=== PATIENT | female | born 1940 | race Caucasian/White ===

== ENCOUNTER 2016-10-04 09:52 | Inpatient (IN) | payer MEDICARE, BC ==
[~2016-10-04] VITALS: Ht 157.5 cm; Wt 63.5 kg
[2016-10-04] MEDS ORDERED: CITA20TA4 PO (11:34)
[2016-10-04] MEDS ORDERED: CALTTAB PO (11:34)
[2016-10-04] MEDS ORDERED: OMEG100037 PO (11:34)
[2016-10-04] MEDS ORDERED: ROSU1TAB6 PO (11:34)
[2016-10-04] MEDS ORDERED: PRESCAP5 PO (11:34)
[2016-10-04] MEDS ORDERED: STRETAB PO (11:34)
[2016-10-04] MEDS ORDERED: AMLO5TAB2 PO (11:34)
[2016-10-04] MEDS ORDERED: BIOFTAB PO (11:34)
[2016-10-04] MEDS ORDERED: COCO1000 PO (11:34)
[2016-10-04] MEDS ORDERED: ASPI1TAB73 PO (11:34)
[2016-10-04] MEDS ORDERED: ALEV220T14 PO (11:34)
[2016-10-04] MEDS ORDERED: LEVO25TA4 PO (11:34)
--- NOTE | 2016-10-11 12:23 | MH ---
cc: HANH SIDHU MD DATE OF ADMISSION 10/17/2016 ADMITTING DIAGNOSIS Severe osteoarthritis of the right shoulder, incomplete rotator cuff tear right shoulder, pain right shoulder. HISTORY The patient is a 76-year-old white female who has had a rather lengthy history of pain involving her right shoulder extending back at least 3-1/2 years. She had noted the gradual onset of discomfort unrelated to injury or unusual activity and had tried taking Aleve for pain management. She presented to the undersigned physician in April of 2013 and at that time x-ray studies revealed hypertrophic reaction about the inferior aspect of the humeral head with preservation of the subacromial space. At that time, the patient was diagnosed as having subacromial bursitis with early degenerative joint disease for which she was advised conservative management which included receiving a local steroid injection. She was followed on an outpatient basis thereafter and over the following years continued to receive conservative management which included repeat cortisone injections. Unfortunately with the passage of time, repeated injections did not continued to afford the patient favorable response and she was later prescribed Tramadol for pain management. A subsequent MRI scan did demonstrate severe glenohumeral joint arthrosis and severe cuff tendinosis without a distinct tear being appreciated within the previous two years. The patient elected to continue with conservative management at that time being aware of obvious limitations with regards to her daily routine. 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 She returned to the office in July of this past year indicating that she was continuing to have pain about the shoulder area and again requested a repeat injection in the hope that she might be able to experience some overall improvement. Unfortunately, she was unable to appreciate only temporary relief for continued treatment in this regard and thus she was advised that repeated steroid injections to the shoulder area would not be in her best interest as far as trying to manage her ongoing symptoms. A more recent MRI scan completed this past year was significant for worsening of the glenohumeral joint osteoarthritis with moderate synovitis with rotator cuff tendinosis being identified. The patient continued to utilize Tramadol for pain management. She returned to the office in September of this year reporting that she was becoming increasingly more symptomatic with pain. That was beginning to incapacitated her with regards to all activities of daily living. She underwent a CT scan of the shoulder with contrast the results of which identified severe glenohumeral joint arthrosis with contrast extending into the subacromial and subdeltoid bursa with a small gap in the rotator cuff interval being appreciated. Findings and treatment options were reviewed with the patient at that time. Again, the pros and cons of continued with conservative management versus operative intervention involving reverse shoulder arthroplasty were outlined in detail. Emphasis was made regarding the fact that the decision to proceed with surgery would be left entirely to the patient's discretion. She readily admitted that she felt that she had progressed to that point in time where she was ready to proceed accordingly and in compliance with her wishes, she is currently being admitted in order that right reverse shoulder arthroplasty be accomplished. She is right-hand dominant. PAST MEDICAL HISTORY Hospitalizations and surgeries have included: 1. A left corneal transplant 2. colonoscopy 3. Dental extraction in the maxillary region. Her medical illnesses include: 1. Hypertension 1. Elevated cholesterol MEDICATIONS Current medications: 1. Amlodipine 5 mg daily 2. Levofloxacin 25 mg daily 3. Lovastatin 10 mg daily 4. Citalopram 20 mg daily 5. Fish oil 1000 mg daily 6. Coconut oil 1000 mg daily 7. Stress super B daily 8. PreserVision daily 9. Active mind 1000 mg daily 10. 81 mg Brigido aspirin tablet daily 11. Caltrate-D3 600 mg daily 12. BioFlex daily 13. Aleve p.r.n. ALLERGIES THE PATIENT DESCRIBES A DRUG ALLERGY TO CODEINE WHICH HAS BEEN ASSOCIATED WITH HALLUCINATIONS. SHE HAS TOLERATED TRAMADOL. REVIEW OF SYSTEMS She wears glasses. Denies headache, seizure or syncope. No sinus congestion. There is a history of epistaxis During childhood. Diminished auditory acuity for which a hearing aid is utilized on the left side. Complete upper dentures. No dysphagia. Denies cough, shortness of breath, upper respiratory infection, pneumonia or tuberculosis. No angina or heart disease. She is medically managed for hypertension. Her appetite is good. Bowel movements are regular. No hepatitis, gallbladder disease, ulcers or hemorrhoids. No urinary tract infection. No kidney stones. There is a fracture of the left ankle treated by cast immobilization. No psychiatric illness. Her remaining review of systems is unremarkable and noncontributory. FAMILY HISTORY The patient has been a for seven years, at approximately 80 years of age with heart disease. No children. Family history is positive for hypertension, diabetes, tuberculosis, heart disease and lung cancer. SOCIAL HISTORY The patient completed a college education. 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 She denies active use of tobacco for at least 35 years, but had been less than a one-pack per day user for 20 years prior to that time. Ethanol consumption on a rare basis in the form of a glass of wine. PHYSICAL EXAMINATION Height 5 feet 2 inches, weight 146 pounds. GENERAL: An alert, oriented and responsive 76-year-old white female who sits quietly upon examination table with no obvious distress. HEAD, EYES, EARS, NOSE, AND THROAT: Pupils are equally round and reactive to light. Extraocular movements full. Sclerae clear. External nares clear. External auditory canals clear. Edentulous in the maxillary distribution. Semi-edentulous in the mandibular distribution. Mucous membranes pink and moist. Pharynx clear. NECK: Supple. Active range of motion without appreciable pain. Carotid pulse bilaterally. Trachea midline. Thyroid without enlargement. LUNGS: Clear to auscultation and percussion. No CVA tenderness. No discomfort throughout the dorsal lumbar spine. HEART: Regular rhythm with grade 3/6 systolic murmur heard best at the right second intercostal space. ABDOMEN: Soft, nontender. Bowel sounds present. PELVIC: Per her primary care physician. EXTREMITIES: Right shoulder, there is mild tenderness generalized about the shoulder area without palpable deformity. Limited mobility of the shoulder joint in all ranges assessed with attempted active posturing of the hand above the head level, significant limitation with internal rotation, as well as adduction as the patient attempted to reach across her body and touch her opposite shoulder. Pain is associated with the extremes of motion. There is no associated crepitation or instability. Drop arm test is positive. Mild weakness of internal and external rotation. 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 Sensory intact. NEUROLOGIC: Cranial nerves II-XII grossly intact. IMPRESSION Severe osteoarthritis of the right shoulder, incomplete rotator cuff tear right shoulder, pain right shoulder. PLAN Right reverse shoulder arthroplasty. The nature of the planned surgical procedure, the potential complications and risks associated, the expectations of surgery and the consent form were thoroughly reviewed with the patient prior to admission to the hospital. Essie has indicated her full understanding regarding all the above and given consent to proceed with treatment as outlined. Medical evaluation and clearance for surgery will be completed by her primary care physician Dr. Julien, cardiology clearance per Dr. Rodriguez. MD GREGORIO Small/QUIANA /11:35 AM /12:08 PM
[2016-10-17] MEDS ORDERED: SODIUM CHLORID 0.9% 500 ML IV PRN (06:15)
[2016-10-17] MEDS ORDERED: LACTATED RINGER'S 1000 ML IV PRN (06:15)
[2016-10-17] MEDS ORDERED: METOPROLOL TARTRATE 25 MG TAB PO PRN (06:15)
[2016-10-17] MEDS ORDERED: POVIDONE IODINE 5% (ANTISEPSIS KIT) 4 APPLICATIONS EACH NARE PRN (06:15)
[2016-10-17] MEDS ORDERED: INSULIN HUMAN REGULAR 1,000 UNITS/10 ML VIAL SQ PRN (06:15)
[2016-10-17] MEDS ORDERED: CHLORHEXIDINE GLUCONATE 2 % 1 PACK (2 CLOTHS) TOPICAL PRN (06:15)
[2016-10-17 06:24] VITALS: BP 142/69; PULSE 59; RESP 18; TEMP 98.3; O2SAT 59
[2016-10-17] MEDS: POVIDONE IODINE 7.5% SCRUB 118 ML BOTTLE TOPICAL SCH ×2 (06:45→19:43)
[2016-10-17] MEDS ORDERED: ceFAZolin 2 GM PREMIX 50 ML IV SCH (06:45)
[2016-10-17] MEDS ORDERED: TRANEXAMIC ACID 1 GM PRIOR TO PROCEDURE IV SCH ×2 (06:45)
[2016-10-17] MEDS: TRANEXAMIC ACID 1 GM POST-OP IV SCH ×4 (06:47→10:45)
[2016-10-17] MEDS ORDERED: SODIUM CHLORIDE 0.9% 20 ML VIAL ONE (06:53)
[2016-10-17] MEDS ORDERED: ceFAZolin INJ 1,000 MG VIAL ONE (06:53)
[2016-10-17] MEDS ORDERED: MIDAZOLAM HCL 2 MG/2 ML VIAL ONE (07:14)
[2016-10-17] MEDS ORDERED: FAMOTIDINE 20 MG/2 ML VIAL ONE (07:14)
[2016-10-17] MEDS ORDERED: DEXAMETHASONE SOD PHOS 4 MG/ML VIAL ONE (07:14)
[2016-10-17] MEDS ORDERED: fentaNYL CITRATE 250 MCG/5 ML AMP ONE (10:30)
[2016-10-17] MEDS ORDERED: *morphine SULFATE 8 MG/ML PERIprocedure ONLY ONE ×2 (10:33→10:46)
[2016-10-17] MEDS ORDERED: MORPHINE SULFATE 30 MG/30 ML PCA IV SCH (10:45)
[2016-10-17] MEDS ORDERED: diphenhydrAMINE HCL 25 MG CAP PO PRN (10:45)
[2016-10-17] MEDS ORDERED: SODIUM CHLORIDE 0.9% FLUSH 5 ML FLUSH IVF PRN (10:45)
[2016-10-17] MEDS ORDERED: MISCELLANEOUS PHARMACY INFORMATION XX ONE (10:45)
[2016-10-17] MEDS ORDERED: TRANEXAMIC ACID INJ 1,000 MG in SODIUM CHLORIDE 0.9% INJ 100 ML IV SCH (10:45)
[2016-10-17] MEDS ORDERED: NALOXONE HCL 0.4 MG/ML AMP IV PRN (10:45)
[2016-10-17] MEDS ORDERED: Post-op Orders (for Pharmacy) MISC XX ONE (10:45)
[2016-10-17] MEDS ORDERED: ONDANSETRON HCL 4 MG/2 ML VIAL IVP PRN (10:45)
[2016-10-17] MEDS ORDERED: DO NOT ADM ANY ANTICOAGULANT DRUGS PRN (11:00)
[2016-10-17] MEDS: DEXT 5%-NACL 0.45% 1000 ML INJ 1,000 ML IV SCH ×2 (11:00→18:31)
--- NOTE | 2016-10-17 11:10 | RADRPT ---
EXAM DATE/TIME: 10/17/2016 10:34 [facility] COMPARISON: No previous studies available for comparison. INDICATIONS : Post op right shoulder surgery. MEDICAL HISTORY : None. SURGICAL HISTORY : None. ENCOUNTER: Initial ACUITY: 1 day PAIN SCORE: 3/10 LOCATION: Right shoulder. FINDINGS: Right total shoulder arthroplasty is noted. The hardware appears intact. Alignment is anatomic. The a djacent clavicle and ribs are unremarkable. There is mild atelectasis of the visualized right lung ba se. CONCLUSION: Satisfactory appearance post right total shoulder arthroplasty Aidan Spencer MD on October 17, 2016 at 11:08 Board Certified Radiologist. This report was verified electronically.
[2016-10-17] MEDS ORDERED: *HYDROmorphone PF 1 MG VIAL PERIprocedural Use ONLY ONE (11:16)
--- NOTE | 2016-10-17 11:26 | MP ---
cc: HANH ROY M.D. DATE OF SURGERY: 10/17/2016 PREOPERATIVE DIAGNOSIS Severe osteoarthritis of the right shoulder, incomplete rotator cuff tear right shoulder, pain right shoulder. POSTOPERATIVE DIAGNOSIS Severe osteoarthritis of the right shoulder, incomplete rotator cuff tear right shoulder, pain right shoulder. PROCEDURE Right reverse shoulder arthroplasty. SURGEON Manuela ANESTHESIA General endotracheal. INDICATIONS A 76-year-old white female with a lengthy history of right shoulder pain extending back at least three and half years when she had noted the gradual onset of discomfort unrelated to injury or unusual activity. Initially she conformed to conservative modalities which included taking Aleve for pain management. She had undergone initial orthopedic evaluation with the undersigned physician in April 2013 and at that time x-ray studies revealed hypertrophic reaction about the inferior aspect of the humeral head with preservation of the subacromial space. The patient was diagnosed as having subacromial bursitis with early degenerative changes for which she was advised continued conservative modalities which included a local steroid injection. She was followed on an outpatient basis thereafter over the following years, continued to receive conservative modalities which included repeat cortisone injections. Unfortunately with the passage of time and repeated injections the patient was unable to experience any long-term improvement. A subsequent MRI scan demonstrated severe glenohumeral joint arthrosis with severe cuff tendinosis without a distinct tear being appreciated. The patient elected to continue with conservative management at that time being aware of obvious limitations regarding her daily routine. 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 She returned to the office in July of this past year indicating that she was continuing to have pain about the shoulder area, requesting a repeat injection in the hope that she might be able to experience some overall improvement. Unfortunately she was only able to note temporary relief and remained symptomatic with pain about the shoulder area. A more recent MRI scan completed this past year demonstrated significant worsening of the glenohumeral joint osteoarthritis with moderate synovitis and rotator cuff tendinosis being identified. The patient was taking tramadol for pain management. She returned to the office in September of this year reporting that she was becoming increasingly more symptomatic with pain and beginning to experience incapacitation regarding all activities of daily living. A CT scan of the shoulder with contrast identified severe glenohumeral joint arthrosis with contrast extending into the subacromial and subdeltoid bursa within the rotator cuff interval for which findings and treatment options were reviewed. The pros and cons of further conservative management versus operative intervention involving reverse shoulder arthroplasty were outlined in detail. Emphasis was made regarding the fact that the decision to proceed with surgery would be left entirely to the patient's discretion. She readily admitted that she had reached that point in time where she was ready to proceed with surgery as previously discussed and in compliance with her wishes she was scheduled for admission at this time in order that the above be accomplished. FORMAT Following the induction of satisfactory general anesthesia by endotracheal intubation as completed per the Department of Anesthesia, the patient was positioned upon the operating table in a modified beach-chair configuration. The right shoulder and upper extremity proper were isolated with a U-drape, thereafter being prepped with Betadine solution and draped into a sterile field in the routine manner. Prior to initiation of the actual procedure the standard timeout protocol was completed. All parameters were appropriately addressed and confirmed by operating room personnel. A standard anterior approach to the shoulder was initiated through a sharp skin incision extending from the inferior margin of the clavicle and lateral to the coracoid process and extending distally in line with the deltopectoral interval to the axillary crease. The incision was developed through underlying subcutaneous tissue with hemostasis maintained by electrocautery. By deepening dissection the deltopectoral interval was identified. The cephalic vein was utilized as an anatomical landmark and an interval was developed in a distal to proximal orientation with the vein being retracted in a lateral orientation. As the interval was developed the subdeltoid region was released of adhesions in a manual manner. Retractors were placed and the shoulder maintained in a slightly externally rotated posture. The biceps tendon was identified and divided at its entry into the bicipital groove. A very limited release of the pectoralis insertion was completed and the biceps tendon was thereafter tenodesed to the pectoralis tendon stump. The excess portion of the tendon was excised. With the shoulder maintained in a slightly externally rotated posture the three-sister circumflex vessels were identified, clamped and coagulated. Beginning with the shoulder in a slightly externally rotated posture the subscapularis tendon was divided in line with the anatomical neck of the humerus and the more medial segment of the tendon was tagged with #1 Tycron suture. As the tendon was developed the humeral head was delivered into the wound. Significant degenerative changes were appreciated throughout the entire humeral head articular surface. An entry point was initiated superiorly adjacent to the bicipital groove facilitating entry into the humeral shaft. Sequential rasping was accomplished from 5 through 9 mm. With the 9 mm femoral rasp in place the outrigger guide was positioned and the humeral head resected in approximately 30 degrees of retroversion. The rasp was removed and sequential broaching was accomplished from 7 through 9 mm. The 9 mm stem was determined to be satisfactory. The covering cap was placed and attention was thereafter redirected to the glenoid. Retractors were placed posteriorly, inferiorly, anteriorly and superiorly and thereafter the residual segment of the biceps tendon was resected as was the glenoid labrum and the superior and middle glenohumeral ligaments. With the glenoid adequately exposed in a circumferential manner hash bobo were placed from the 12 to 6 o'clock position and the 3 to 9 o'clock position allowing orientation of the central portion of the glenoid. With the 10 mm inferior tilt glenoid guide in place a guide pin was passed into the substance of the glenoid over which the step-down reamer was passed creating a central peg hole. The guide pin being removed a 25 mm Glenosphere mini baseplate was firmly seated into the glenoid. Thereafter depth measurement was accomplished and a 35 mm central screw was placed. Additional measurement facilitated placement of 25 mm locking screws superiorly and inferiorly and 15 mm locking screws anteriorly and posteriorly. With the baseplate firmly secured in place a 36 mm Glenosphere with maximum inferior offset was firmly seated onto the baseplate. Attention was redirected to the proximal humerus. With the 9 mm trial femoral broach in place a trial reduction was completed utilizing a 44 mm humeral tray with a 44 x 36 mm humeral bearing insert. The shoulder readily reduced and was carried through a passive range of motion. With stability being demonstrated at 60 degrees of internal rotation the extremity aligned parallel to the torso at 40 degrees of external rotation, the humeral bearing insert remained appropriately oriented in relationship to the glenoid and there was no appreciable laxity with posterior shucking maneuvering. An open dislocation was thereafter completed. The trial humeral components being removed the canal was thoroughly irrigated and dried and thereafter the permanent 9 mm mini humeral stem was firmly seated to which a 44 mm humeral tray with 44 x 36 mm humeral bearing insert attached was affixed to the humeral stem and open reduction completed and repeat range of motion again noted stability as previously described. Final irrigation was accomplished with hemostasis maintained. The subscapularis tendon was thereafter repaired with #1 Tycron suture. The deltopectoral interval was re-approximated with a running 0 Vicryl suture and the remaining portion of the wound was closed in layers in the routine manner, skin margins being re-approximated with a running subcuticular 3-0 Vicryl suture over which Steri-Strips were placed. Xeroform gauze and a bulky dry sterile dressing were applied. With the extremity being supported in an arm sling anesthesia was discontinued and the patient thus transferred to a hospital stretcher and returned to the recovery room in satisfactory condition having tolerated her operative procedure well. Estimated blood loss was approximately 200 cc as determined per Anesthesia. All implants were of the [employer] nuclear cardiology technologist. Hanh Roy MD NBS/BT /10:19 AM /10:54 AM
[2016-10-17] MEDS ORDERED: PHENYLEPHRINE HCL 10 MG/ML VIAL IV ONE (12:00)
[2016-10-17] MEDS ORDERED: PROPOFOL 200 MG/20 ML AMP IV ONE (12:00)
[2016-10-17] MEDS ORDERED: ONDANSETRON HCL 4 MG/2 ML VIAL IV PUSH ONE (12:00)
[2016-10-17 12:15] VITALS: BP 112/57; PULSE 82; RESP 18; TEMP 96.1; O2SAT 95
[2016-10-17] MEDS: PCA - TOTAL MG MORPHINE DELIVERED PER SHIFT SCH ×2 (14:00→19:44)
[2016-10-17 16:00] VITALS: BP 106/58; PULSE 81; RESP 18; TEMP 96.5; O2SAT 94
--- NOTE | 2016-10-17 16:10 | HHI.PR ---
Objective Objective Results - Vital Signs Date Time Temp Pulse Resp B/P Pulse Ox O2 Delivery O2 Flow Rate FiO2 10/17/16 14:00 17 10/17/16 13:38 15 10/17/16 12:15 96.1 82 18 112/57 95 10/17/16 12:05 87 14 111/58 94 Nasal Cannula 3 10/17/16 11:45 90 14 111/59 91 Nasal Cannula 4 10/17/16 11:30 83 14 113/64 92 Nasal Cannula 4 10/17/16 11:15 89 14 110/62 91 Nasal Cannula 4 10/17/16 11:00 95 14 106/59 91 Nasal Cannula 4 10/17/16 10:45 99 14 127/68 91 Nasal Cannula 4 10/17/16 10:30 95 14 125/70 93 Nasal Cannula 4 10/17/16 10:21 97.9 107 14 130/67 94 Nasal Cannula 4 10/17/16 06:24 98.3 59 18 142/69 59 I/O 10/16/16 10/16/16 10/16/16 10/17/16 10/17/16 10/17/16 07:00 15:00 23:00 07:00 15:00 23:00 Intake Total 1200 ml Output Total 200 ml Balance 1000 ml Intake Oral 0 ml IV Total 300 ml Other 900 ml Output Urine Total 0 ml Estimated Blood Loss 200 ml Physical Exam Physical Exam PHYSICAL EXAMINATION GENERAL: This is a well-developed, well-nourished female who appears to be in no acute distress. She is alert and awake, []. HEAD: Normocephalic without any lesion or mass noted. Facial features appear symmetric. EYES: Perrla, Normal eye movement, [] Icterus. [] Conj congestion. OROPHARYNGEAL: Oropharynx without erythema or edema. MOUTH/THROAT: Tongue midline []. Buccal mucosa is moist []. NECK: Supple. No nuchal rigidity or lymphadenopathy. Trachea midline without deviation. Thyroid not palpable, no bruits appreciated. CARDIAC: Regular rhythm, regular rate, S1 and S2 are heard. Murmur []; no gallops or rubs. LUNGS: Clear to auscultation bilaterally. [] wheeze, [] rhonchi or [] rale. No use of accessory muscles on inspiration or expiration. ABDOMEN: Soft, nontender, no organomegaly or masses. Bowel sounds are heard in all four quadrants. No rebound. No guarding. EXTREMITIES: [] edema. Pulses equal bilateral. [] cyanosis. NEUROLOGICAL: Patient mood and affect appropriate. Cranial nerves II through XII grossly intact. Muscle strength 5/5 in the upper and lower extremities bilaterally. Deep tendon reflexes are 2+ in the upper and lower extremities bilaterally. SKIN:Warm and moist PSYCH: Mood and affect appropriate A/P Assessment and Plan patient seen and examined detailed consult dictated by NELY s/p Total shoulder arthroplasty recieved NAr[facility] in PACU now sleepy but arousable vitals stable continue to monitor friend at bed side discussed with friend and nursing staff discussed with Sabi Riley MD Oct 17, 2016 16:10
[2016-10-17 16:28] VITALS: O2SAT 95
[2016-10-17] MEDS: traMADol HCL 50 MG TAB PO PRN ×2 (18:42→21:53)
--- NOTE | 2016-10-17 18:56 | MB ---
cc: YULI MAYNARD DATE OF CONSULTATION: 10/17/2016 DATE OF : 1940 REASON FOR CONSULTATION Medical management. HISTORY OF PRESENT ILLNESS This is a pleasant 76-year-old white female who has been struggling with osteoarthritis and pain for the past couple of years. The patient has been working with outpatient treatment regimens but has not had the relief that she felt like she needed. Today she had a right reverse shoulder arthroplasty. The patient is currently resting in her room on the orthopedic medical floor postop. She is drowsy but responds to verbal stimuli. The patient has comorbidities such as hyperlipidemia, hypertension and chronic pain. Our hospitalist team will assist in her medical management. PAST MEDICAL HISTORY This is per the record. 1. Left corneal transplant. 2. Colonoscopy. 3. Dental extractions. 4. Subacromial bursitis with early degenerative joint disease. 5. Osteoarthritis with incomplete rotator cuff tear right shoulder. She is status post her surgical procedure. PAST SURGICAL HISTORY This is her first surgical procedure except for the left corneal transplant. ALLERGIES CODEINE. MEDICATIONS Listed on her current med rec - 1. Amlodipine. 2. Levofloxacin. 3. Lovastatin. 4. Citalopram. 5. Fish Oil. 6. Coconut Oil. 7. B vitamins. 8. Vitamins for her eyes. 9. Active Mind 10. Aspirin 81 mg. 11. Caltrate. 12. Bioflex. 13. Aleve p.r.n. SOCIAL HISTORY The patient is . Currently denies any alcohol or illicit drug use. She was a smoker in her younger years but quit approximately 30 years ago. She lives in her own home and has a friend who is also her export freight manager that lives with her time analysis clerk. FAMILY HISTORY N/A. REVIEW OF SYSTEMS A 12-point review was obtained. Limited information due to the patient's drowsiness postop. Other than her right shoulder postop pain, other systems are negative and are unremarkable. PHYSICAL EXAMINATION VITAL SIGNS: Temperature is 98.3, pulse 87, respirations 15, blood pressure 111/58 and 110/62, O2 sat 94 nasal canula at 3 liters. GENERAL: Well-nourished elderly female, looks to be her stated age, resting in the bed. She is a fair historian but fairly drowsy right now. Most of the information I have obtained is coming from the record. HEENT: Atraumatic, normocephalic. PERRLA. Mucous membranes are pink and dry. NECK: Supple. CARDIOVASCULAR: S1, S2. A soft systolic murmur noted at the left sternal border. PULMONARY: Lungs are essentially clear anteriorly and posteriorly with no wheezes, rales or rhonchi. ABDOMEN: Soft, flat, nontender, nondistended. Active bowel sounds heard. MUSCULOSKELETAL: She is moving her left arm and both of her legs with purpose. The right arm and shoulder are currently in a sling but the patient can move her fingers and hand on command softly. NEUROLOGIC: She is drowsy but does respond to verbal stimuli, she is sleeping some, postop. Speech is clear and understandable, soft voice. SKIN: [place], warm and dry. DIAGNOSTIC DATA Lab work noted on 10/04/2016: WBC count 4.3, RBC 4.18, hemoglobin 13.4, hematocrit 38.4, platelet count 210, neutrophil count 64.3, lymphocyte 24.7, monocyte 7.7. PT/INR is 1. Chemistry: Sodium 145, potassium 3.7, chloride 108, carbon dioxide 31.3, anion gap 6, BUN 13, creatinine 0.62, GFR 94, fasting glucose 91, calcium 9.1. Her urine is dark yellow and hazy, ph is 6, specific gravity 1.023, trace of protein. Glucose, ketones, occult blood, nitrites, bilirubin are all negative. Leukocyte esterase is trace, urobilinogen is less than 2, casts. Culture not indicated. IMAGING Right shoulder x-ray shows satisfactory appearance of the right total shoulder arthroplasty. ASSESSMENT 1. Osteoarthritis severe of the right shoulder. She is status post right reverse shoulder arthroplasty, incomplete rotator cuff tear of the right shoulder. 2. Hypertension. 3. Hyperlipidemia. PLAN 1. Monitor her vital signs as well as monitor any medical management she may need. 2. We will redraw labs in the morning CBC and BMP for a comparison. 3. Pain management and postop care will be taken care of by her Orth team. 4. We will have vital signs every 4 hours, intake and output. 5. The patient will be started on her rehab therapy program as well as a regular diet. 6. SCDs and TEDs for DVT prophylaxis. The patient is also on Xarelto. 7. Bowel regimen. 8. Place the patient on PUD prophylaxis with Pepcid. 9. The patient will need observation and changing of her dressings but that will be directed by Ortho. 10. Case management involved for discharge planning. Thank you very much for the consult, we will follow. DICTATED BY: Anne Scott NP MD MACKENZIE Leach/ADDIE /1:57 PM /6:02 PM
[2016-10-17] MEDS: SODIUM CHLORIDE 0.9% FLUSH 5 ML FLUSH IVF SCH (19:59)
[2016-10-17 20:13] VITALS: BP 106/66; PULSE 71; RESP 20; TEMP 97.1; O2SAT 96
[2016-10-17] MEDS ORDERED: ZOLPIDEM TARTRATE 5 MG TAB PO PRN (21:00)
[2016-10-18 00:40] VITALS: BP 115/57; PULSE 69; RESP 18; TEMP 96.5; O2SAT 95
[2016-10-18] MEDS: traMADol HCL 50 MG TAB PO PRN ×3 (01:54→16:16)
[2016-10-18] MEDS: DEXT 5%-NACL 0.45% 1000 ML INJ 1,000 ML IV SCH ×4 (01:56→18:31)
[2016-10-18 04:15] VITALS: BP 111/59; PULSE 65; RESP 17; TEMP 97.7; O2SAT 96
[2016-10-18] MEDS: PCA - TOTAL MG MORPHINE DELIVERED PER SHIFT SCH ×3 (05:36→21:46)
[2016-10-18] MEDS ORDERED: ASPI325T PO (06:04)
[2016-10-18] MEDS ORDERED: ULTR50TA5 PO (06:04)
--- NOTE | 2016-10-18 06:07 | HHI.FF ---
Face to Face Verification Diagnosis: (1) Degenerative joint disease, shoulder, right Occupational Therapy Right UE Weight Bearing: WB as tolerated Right UE Range of Motion: Active ROM Additional Instructions limit external rotation to 45 degrees for initial 4 weeks post-op then progress as tolerated Nursing Dressing Changes: Daily dressing change I have seen patient Essie Rod on 10/18/16. My clinical findings support the need for the requested home health care services because: Limited ability to care for self High risk of falls I certify that my clinical findings support that this patient is homebound because: Post-op weakness Unsteady gait/balance Unsafe to leave home unassisted Jose David Roy MD Oct 18, 2016 06:07
[2016-10-18 06:45] LABS: BICARBONATE 28.9 MEQ/L (21.0-32.0); POTASSIUM 3.9 MEQ/L (3.5-5.1)
[2016-10-18 07:26] LABS: AUTOMATED NEUTROPHIL # 6.2 TH/MM3 (1.8-7.7); BASOPHIL % 0.1 % (0.0-2.0); EOSINOPHIL % 0.1 % (0.0-4.0); HEMATOCRIT 32.2 % (35.0-46.0); HEMO FLAGS DIFF FINAL; LYMPH % 12.3 % (9.0-44.0); LYMPHOCYTE # 0.9 TH/MM3 (1.0-4.8); MEAN CELL VOLUME 93.1 FL (80.0-100.0); MEAN CORPUSCULAR HEMOGLOBIN 32.1 PG (27.0-34.0); MEAN CORPUSCULAR HGB CONC 34.5 % (32.0-36.0); MONO % 6.9 % (0.0-8.0); NEUT % 80.6 % (16.0-70.0); PLATELET COUNT 170 TH/MM3 (150-450); RED BLOOD COUNT 3.45 MIL/MM3 (4.00-5.30); RED CELL DISTRIBUTION WIDTH 13.8 % (11.6-17.2); WHITE BLOOD COUNT 7.7 TH/MM3 (4.0-11.0)
[2016-10-18 08:00] VITALS: BP 129/60; PULSE 68; RESP 18; TEMP 97.9; O2SAT 90
[2016-10-18] MEDS: RIVAROXABAN 10 MG TAB PO SCH (08:52)
[2016-10-18] MEDS: ACETAMINOPHEN 325 MG TAB PO PRN (08:52)
[2016-10-18] MEDS: SODIUM CHLORIDE 0.9% FLUSH 5 ML FLUSH IVF SCH ×2 (08:57→21:00)
--- NOTE | 2016-10-18 11:12 | HHI.PR ---
Subjective Subjective Remarks sitting up in chair feeling less groggy has been out of bed, did well with some assistance no cp no sob no fever Review of Systems Constitutional Constitutional Remarks 12 point review of systems completed, negative except as noted above Vitals/Results Intake & Output 10/17/16 10/17/16 10/18/16 15:00 23:00 07:00 Intake Total 1200 ml 140 ml 240 ml Output Total 200 ml Balance 1000 ml 140 ml 240 ml Intake Oral 0 ml 140 ml 240 ml IV Total 300 ml Other 900 ml Output Urine Total 0 ml Estimated Blood Loss 200 ml # Voids 1 1 # Bowel Movements 0 0 Vital Signs Vital Signs Date Time Temp Pulse Resp B/P Pulse Ox O2 Delivery O2 Flow Rate FiO2 10/18/16 09:08 Nasal Cannula 3.00 10/18/16 08:00 97.9 68 18 129/60 90 10/18/16 05:36 18 10/18/16 04:15 97.7 65 17 111/59 96 10/18/16 00:40 96.5 69 18 115/57 95 10/17/16 20:13 97.1 71 20 106/66 96 10/17/16 16:28 95 Nasal Cannula 3.00 10/17/16 16:00 96.5 81 18 106/58 94 10/17/16 14:00 17 10/17/16 13:38 15 10/17/16 12:15 96.1 82 18 112/57 95 10/17/16 12:05 87 14 111/58 94 Nasal Cannula 3 10/17/16 11:45 90 14 111/59 91 Nasal Cannula 4 10/17/16 11:30 83 14 113/64 92 Nasal Cannula 4 10/17/16 11:15 89 14 110/62 91 Nasal Cannula 4 CBC/BMP: 10/18/16 0553 10/18/16 0553 Lab Results Laboratory Tests Test 10/18/16 05:53 White Blood Count 7.7 TH/MM3 Red Blood Count 3.45 MIL/MM3 Hemoglobin 11.1 GM/DL Hematocrit 32.2 % Mean Corpuscular Volume 93.1 FL Mean Corpuscular Hemoglobin 32.1 PG Mean Corpuscular Hemoglobin 34.5 % Concent Red Cell Distribution Width 13.8 % Platelet Count 170 TH/MM3 Mean Platelet Volume 7.4 FL Neutrophils (%) (Auto) 80.6 % Lymphocytes (%) (Auto) 12.3 % Monocytes (%) (Auto) 6.9 % Eosinophils (%) (Auto) 0.1 % Basophils (%) (Auto) 0.1 % Neutrophils # (Auto) 6.2 TH/MM3 Lymphocytes # (Auto) 0.9 TH/MM3 Monocytes # (Auto) 0.5 TH/MM3 Eosinophils # (Auto) 0.0 TH/MM3 Basophils # (Auto) 0.0 TH/MM3 CBC Comment DIFF FINAL Differential Comment Sodium Level 140 MEQ/L Potassium Level 3.9 MEQ/L Chloride Level 105 MEQ/L Carbon Dioxide Level 28.9 MEQ/L Anion Gap 6 MEQ/L Blood Urea Nitrogen 14 MG/DL Creatinine 0.58 MG/DL Estimat Glomerular Filtration 101 ML/MIN Rate Random Glucose 149 MG/DL Calcium Level 8.2 MG/DL Physical Exam General General Appearance: Well Developed, Well Nourished, No Acute Distress, Comfortable Eyes Eye Exam: Pupils Equal, Pupils Reactive Ears & Nose Ears & Nose Exam: Nasal Mucosa [place] Throat Throat Exam: Oral Mucosa [place] & Moist Neck Neck Exam: Neck Supple, Trachea Midline Pulmonary Resp Exam: Clear Bilaterally, No Distress Cardiology CV Exam: Regular, Good Perfusion Gastrointestinal/Abdomen GI Exam: Soft, Non-Tender, Bowel Sounds Present, Non-Distended Musculoskeletal MS Remarks Left shoulder in sling, surgical site intact Integumentary Skin Exam: Warm, Dry Extremeties Extremities Exam: No Edema, Pedal Pulses Palpable Neurologic Neuro Exam: Alert, Awake, Oriented, Speech Clear, No Focal Deficits Psychiatric Psych Exam: Appropriate Responses VTE Prophylaxis VTE Remarks Xarelto Assessment/Plan Problem List: (1) Degenerative joint disease, shoulder, right Assessment/Plan 1. Osteoarthritis severe of the right shoulder. She is status post right reverse shoulder arthroplasty, incomplete rotator cuff tear of the right shoulder. 2. Hypertension. 3. Hyperlipidemia. Plan Status post right reverse shoulder arthroplasty, received Narcan postop, now improving Continue with postoperative orthopedic care Physical therapy Pain management Hypertension, stable Continue with home medication Monitor sats Avoid oversedation Laboratory workup has been reviewed, stable Continue with Xarelto for DVT prophylaxis D/W RN D/W Dr. Davis D/W pt This patient was seen by myself and Dr. Davis, this note is written on his behalf Fernanda Bean Oct 18, 2016 11:12
--- NOTE | 2016-10-18 11:36 | HHI.PR ---
Subjective Subjective Remarks feeling poorly Vitals/Results Intake & Output 10/17/16 10/17/16 10/18/16 15:00 23:00 07:00 Intake Total 1200 ml 140 ml 240 ml Output Total 200 ml Balance 1000 ml 140 ml 240 ml Intake Oral 0 ml 140 ml 240 ml IV Total 300 ml Other 900 ml Output Urine Total 0 ml Estimated Blood Loss 200 ml # Voids 1 1 # Bowel Movements 0 0 Vital Signs Vital Signs Date Time Temp Pulse Resp B/P Pulse Ox O2 Delivery O2 Flow Rate FiO2 10/18/16 09:08 Nasal Cannula 3.00 10/18/16 08:00 97.9 68 18 129/60 90 10/18/16 05:36 18 10/18/16 04:15 97.7 65 17 111/59 96 10/18/16 00:40 96.5 69 18 115/57 95 10/17/16 20:13 97.1 71 20 106/66 96 10/17/16 16:28 95 Nasal Cannula 3.00 10/17/16 16:00 96.5 81 18 106/58 94 10/17/16 14:00 17 10/17/16 13:38 15 10/17/16 12:15 96.1 82 18 112/57 95 10/17/16 12:05 87 14 111/58 94 Nasal Cannula 3 10/17/16 11:45 90 14 111/59 91 Nasal Cannula 4 CBC/BMP: 10/18/16 0553 10/18/16 0553 Lab Results Laboratory Tests Test 10/18/16 05:53 White Blood Count 7.7 TH/MM3 Red Blood Count 3.45 MIL/MM3 Hemoglobin 11.1 GM/DL Hematocrit 32.2 % Mean Corpuscular Volume 93.1 FL Mean Corpuscular Hemoglobin 32.1 PG Mean Corpuscular Hemoglobin 34.5 % Concent Red Cell Distribution Width 13.8 % Platelet Count 170 TH/MM3 Mean Platelet Volume 7.4 FL Neutrophils (%) (Auto) 80.6 % Lymphocytes (%) (Auto) 12.3 % Monocytes (%) (Auto) 6.9 % Eosinophils (%) (Auto) 0.1 % Basophils (%) (Auto) 0.1 % Neutrophils # (Auto) 6.2 TH/MM3 Lymphocytes # (Auto) 0.9 TH/MM3 Monocytes # (Auto) 0.5 TH/MM3 Eosinophils # (Auto) 0.0 TH/MM3 Basophils # (Auto) 0.0 TH/MM3 CBC Comment DIFF FINAL Differential Comment Sodium Level 140 MEQ/L Potassium Level 3.9 MEQ/L Chloride Level 105 MEQ/L Carbon Dioxide Level 28.9 MEQ/L Anion Gap 6 MEQ/L Blood Urea Nitrogen 14 MG/DL Creatinine 0.58 MG/DL Estimat Glomerular Filtration 101 ML/MIN Rate Random Glucose 149 MG/DL Calcium Level 8.2 MG/DL Fernanda Bean [facility] Oct 18, 2016 11:36
[2016-10-18 12:00] VITALS: BP 114/55; PULSE 59; RESP 19; TEMP 97.2; O2SAT 92
[2016-10-18 16:00] VITALS: BP 124/70; PULSE 60; RESP 18; TEMP 97.6; O2SAT 92
[2016-10-18 20:00] VITALS: BP 105/61; PULSE 67; RESP 26; TEMP 96.7; O2SAT 92
[2016-10-18] MEDS: PSYLLIUM FIBER SF/GF 6 GM POWD PKT PO SCH ×2 (20:00→21:49)
[2016-10-18] MEDS: amLODIPine BESYLATE 5 MG TAB PO SCH (21:00)
[2016-10-18] MEDS: ATORVASTATIN 20 MG TAB PO SCH (21:45)
[2016-10-18] MEDS: DOCUSATE SODIUM 100 MG CAP PO SCH (21:51)
[2016-10-19] VITALS (8 sets, daily range): BP systolic 98–131; BP diastolic 57–71; PULSE 63–75; RESP 14–24; TEMP 97.8–99.6; O2SAT 90–97
[2016-10-19] MEDS: traMADol HCL 50 MG TAB PO PRN ×2 (02:24→13:04)
[2016-10-19] MEDS: DEXT 5%-NACL 0.45% 1000 ML INJ 1,000 ML IV SCH ×3 (02:31→18:31)
[2016-10-19] MEDS: PCA - TOTAL MG MORPHINE DELIVERED PER SHIFT SCH ×3 (06:00→22:00)
[2016-10-19] MEDS: POVIDONE IODINE 7.5% SCRUB 118 ML BOTTLE TOPICAL SCH (06:45)
[2016-10-19] MEDS: LEVOTHYROXINE SODIUM 25 MCG TAB PO SCH (07:29)
[2016-10-19] MEDS: RIVAROXABAN 10 MG TAB PO SCH (08:25)
[2016-10-19] MEDS: CITALOPRAM HYDROBROMIDE 20 MG TAB PO SCH (08:25)
[2016-10-19] MEDS: PSYLLIUM FIBER SF/GF 6 GM POWD PKT PO SCH (08:26)
[2016-10-19] MEDS: ACETAMINOPHEN 325 MG TAB PO PRN ×2 (08:26→18:32)
[2016-10-19] MEDS: DOCUSATE SODIUM 100 MG CAP PO SCH ×3 (08:26→18:30)
[2016-10-19] MEDS: SODIUM CHLORIDE 0.9% FLUSH 5 ML FLUSH IVF SCH ×2 (08:26→21:00)
[2016-10-19] MEDS: MAGNESIUM HYDROXIDE SUSP 30 ML CUP PO PRN (13:04)
--- NOTE | 2016-10-19 14:30 | HHI.PR ---
Subjective Subjective Remarks sitting up in chair More awake, pain well-tolerated "I still feel sleepy" Participated with physical therapy No chest pain Shortness of breath Desated to 90% overnight, currently on oxygen at 2 L with sats 92-94% Does not use oxygen at home Review of Systems Constitutional Constitutional Remarks 12 point review of systems completed, negative except as noted above Vitals/Results Intake & Output 10/18/16 10/18/16 10/19/16 15:00 23:00 07:00 Intake Total 620 ml 480 ml 240 ml Balance 620 ml 480 ml 240 ml Intake Oral 620 ml 480 ml 240 ml # Voids 3 3 1 # Bowel Movements 0 0 Vital Signs Vital Signs Date Time Temp Pulse Resp B/P Pulse Ox O2 Delivery O2 Flow Rate FiO2 10/19/16 12:00 98.4 63 16 98/57 93 10/19/16 08:15 92 Nasal Cannula 3.00 10/19/16 08:00 99.5 71 14 131/60 94 10/19/16 04:00 99.6 75 24 109/58 91 10/19/16 00:00 97.8 70 22 113/71 90 10/18/16 20:00 96.7 67 26 105/61 92 10/18/16 16:00 97.6 60 18 124/70 92 CBC/BMP: 10/18/16 0553 10/18/16 0553 Physical Exam General General Appearance: Well Developed, Well Nourished, No Acute Distress, Comfortable Eyes Eye Exam: Pupils Equal, Pupils Reactive Ears & Nose Ears & Nose Exam: Nasal Mucosa [place] Throat Throat Exam: Oral Mucosa [place] & Moist Neck Neck Exam: Neck Supple, Trachea Midline Pulmonary Resp Exam: Clear Bilaterally, No Distress Cardiology CV Exam: Regular, Good Perfusion Gastrointestinal/Abdomen GI Exam: Soft, Non-Tender, Bowel Sounds Present, Non-Distended Musculoskeletal MS Remarks Left shoulder in sling, surgical site intact Integumentary Skin Exam: Warm, Dry Extremeties Extremities Exam: No Edema, Pedal Pulses Palpable Neurologic Neuro Exam: Alert, Awake, Oriented, Speech Clear, No Focal Deficits Psychiatric Psych Exam: Appropriate Responses VTE Prophylaxis VTE Remarks Xarelto Assessment/Plan Problem List: (1) Degenerative joint disease, shoulder, right Assessment/Plan 1. Osteoarthritis severe of the right shoulder. She is status post right reverse shoulder arthroplasty, incomplete rotator cuff tear of the right shoulder. 2. Hypertension. 3. Hyperlipidemia. Plan Status post right reverse shoulder arthroplasty, received Narcan postop, now improving Continue with postoperative orthopedic care Physical therapy Pain management Use Tylenol and tramadol when necessary for pain, avoid IV narcotics [employer] has been discontinued Hypertension, stable Continue with home medication Monitor sats Hypoxic overnight, continue with oxygen at 2 L Encourage use of IS Discussed with RN, we'll try to wean off oxygen Avoid oversedation Continue with Xarelto for DVT prophylaxis Discharge is planned for tomorrow, home with home health D/W RN D/W Dr. Davis D/W pt This patient was seen by myself and Dr. Davis, this note is written on his behalf Fernanda Bean Oct 19, 2016 14:30
[2016-10-19] MEDS: ATORVASTATIN 20 MG TAB PO SCH (21:00)
[2016-10-19] MEDS: amLODIPine BESYLATE 5 MG TAB PO SCH (21:00)
[2016-10-20] VITALS (8 sets, daily range): BP systolic 108–129; BP diastolic 52–66; PULSE 63–69; RESP 16–22; TEMP 95.9–98.2; O2SAT 92–96
[2016-10-20] MEDS: DEXT 5%-NACL 0.45% 1000 ML INJ 1,000 ML IV SCH ×3 (02:31→09:35)
[2016-10-20] MEDS: ACETAMINOPHEN 325 MG TAB PO PRN (02:53)
[2016-10-20] MEDS: PCA - TOTAL MG MORPHINE DELIVERED PER SHIFT SCH ×3 (06:00→22:00)
[2016-10-20] MEDS: LEVOTHYROXINE SODIUM 25 MCG TAB PO SCH (06:00)
[2016-10-20] MEDS: SODIUM CHLORIDE 0.9% FLUSH 5 ML FLUSH IVF SCH ×2 (09:00→20:20)
[2016-10-20] MEDS: DOCUSATE SODIUM 100 MG CAP PO SCH ×3 (09:33→16:43)
[2016-10-20] MEDS: PSYLLIUM FIBER SF/GF 6 GM POWD PKT PO SCH (09:33)
[2016-10-20] MEDS: CITALOPRAM HYDROBROMIDE 20 MG TAB PO SCH (09:34)
[2016-10-20] MEDS: RIVAROXABAN 10 MG TAB PO SCH (09:34)
[2016-10-20] MEDS: traMADol HCL 50 MG TAB PO PRN ×2 (09:35→14:45)
[2016-10-20] MEDS: MAGNESIUM HYDROXIDE SUSP 30 ML CUP PO PRN (11:28)
--- NOTE | 2016-10-20 18:30 | HHI.PR ---
Subjective Interval History Awake, verbal, complaining of some right upper extremity pain and general weakness Review of Systems Constitutional Constitutional Remarks As above, 10 systems reviewed and otherwise negative Vitals/Results Intake & Output 10/19/16 10/19/16 10/20/16 15:00 23:00 07:00 Intake Total 600 ml 480 ml 480 ml Output Total 600 ml Balance 0 ml 480 ml 480 ml Intake Oral 600 ml 480 ml 480 ml Output Urine Total 600 ml # Voids 2 1 # Bowel Movements 2 0 0 Vital Signs Vital Signs Date Time Temp Pulse Resp B/P Pulse Ox O2 Delivery O2 Flow Rate FiO2 10/20/16 17:47 95 21 10/20/16 16:00 98.1 64 16 129/58 92 10/20/16 11:46 95.9 67 16 119/57 95 10/20/16 08:28 95 Nasal Cannula 3.00 10/20/16 07:45 Nasal Cannula 3.00 10/20/16 07:30 97.6 63 16 115/52 93 10/20/16 04:00 96.7 63 22 108/62 96 10/20/16 00:00 97.6 69 22 109/66 96 10/19/16 20:00 98.6 67 22 120/64 93 10/19/16 19:47 97 Nasal Cannula 3.00 CBC/BMP: 10/18/16 0553 10/18/16 0553 Physical Exam General General Appearance: Well Developed, Well Nourished, No Acute Distress, Comfortable Eyes Eye Exam: Pupils Equal, Pupils Reactive Ears & Nose Ears & Nose Exam: Nasal Mucosa [place] Throat Throat Exam: Oral Mucosa [place] & Moist Neck Neck Exam: Neck Supple, Trachea Midline Pulmonary Resp Exam: Clear Bilaterally, No Distress Cardiology CV Exam: Regular, Good Perfusion Gastrointestinal/Abdomen GI Exam: Soft, Non-Tender, Bowel Sounds Present, Non-Distended Musculoskeletal MS Exam: Normal Tone MS Remarks Right upper extremity in a sling Integumentary Skin Exam: Warm, Dry Extremeties Extremities Exam: No Edema, Pedal Pulses Palpable Neurologic Neuro Exam: Alert, Awake, Oriented, Speech Clear Psychiatric Psych Exam: Appropriate Responses VTE Prophylaxis VTE Remarks xarelto Assessment/Plan Problem List: (1) Degenerative joint disease, shoulder, right Assessment/Plan Assessment . Osteoarthritis severe of the right shoulder. She is status post right reverse shoulder arthroplasty, incomplete rotator cuff tear of the right shoulder . Difficult to ambulate . Debilitated . Hypertension. . Hyperlipidemia. Plan Pain control Physical therapy Bowel regimen DVT prophylaxis The patient was like to be placed at [facility] Case management referral ordered Discussed with patient and family Discussed with nurse Discussed Condition with: Patient, Daughter Nigel Davis MD Oct 20, 2016 18:30
[2016-10-20] MEDS: amLODIPine BESYLATE 5 MG TAB PO SCH (20:20)
[2016-10-20] MEDS: ATORVASTATIN 20 MG TAB PO SCH (20:20)
[2016-10-21] VITALS: BP 120/57; PULSE 62; RESP 16; TEMP 98.8; O2SAT 95
[2016-10-21 04:00] VITALS: BP 116/58; PULSE 70; RESP 16; TEMP 98.5; O2SAT 95
[2016-10-21] MEDS: LEVOTHYROXINE SODIUM 25 MCG TAB PO SCH (05:08)
[2016-10-21] MEDS: PCA - TOTAL MG MORPHINE DELIVERED PER SHIFT SCH (06:00)
[2016-10-21 08:05] VITALS: BP 130/61; PULSE 62; RESP 16; TEMP 97.9; O2SAT 91
[2016-10-21] MEDS: SODIUM CHLORIDE 0.9% FLUSH 5 ML FLUSH IVF SCH (09:00)
[2016-10-21] MEDS: RIVAROXABAN 10 MG TAB PO SCH (10:05)
[2016-10-21] MEDS: DOCUSATE SODIUM 100 MG CAP PO SCH (10:05)
[2016-10-21] MEDS: CITALOPRAM HYDROBROMIDE 20 MG TAB PO SCH (10:05)
[2016-10-21] MEDS: PSYLLIUM FIBER SF/GF 6 GM POWD PKT PO SCH (10:06)
[2016-10-21 12:38] VITALS: BP 132/57; PULSE 63; RESP 16; TEMP 96; O2SAT 97
[2016-10-21] MEDS ORDERED: PROT40TA PO (13:16)
[2016-10-21] MEDS ORDERED: COLA100C3 PO (13:18)
--- NOTE | 2016-10-21 13:18 | HHI.PR ---
Subjective Interval History Alert, oriented, pain well-controlled Review of Systems Constitutional Constitutional Remarks As above, 10 systems reviewed and otherwise negative Vitals/Results Intake & Output 10/20/16 10/20/16 10/21/16 15:00 23:00 07:00 Intake Total 600 ml 480 ml 240 ml Balance 600 ml 480 ml 240 ml Intake Oral 600 ml 480 ml 240 ml # Voids 3 1 4 # Bowel Movements 0 0 Vital Signs Vital Signs Date Time Temp Pulse Resp B/P Pulse Ox O2 Delivery O2 Flow Rate FiO2 10/21/16 10:08 Nasal Cannula 3.00 10/21/16 08:05 97.9 62 16 130/61 91 10/21/16 04:00 98.5 70 16 116/58 95 10/21/16 00:00 98.8 62 16 120/57 95 10/20/16 20:00 98.2 66 16 116/58 95 10/20/16 18:05 Nasal Cannula 3.00 10/20/16 17:47 95 21 10/20/16 16:00 98.1 64 16 129/58 92 CBC/BMP: 10/18/16 0553 10/18/16 0553 Physical Exam General General Appearance: Well Developed, Well Nourished, No Acute Distress, Comfortable Eyes Eye Exam: Pupils Equal, Pupils Reactive Ears & Nose Ears & Nose Exam: Nasal Mucosa [place] Throat Throat Exam: Oral Mucosa [place] & Moist Neck Neck Exam: Neck Supple, Trachea Midline Pulmonary Resp Exam: Clear Bilaterally, No Distress Cardiology CV Exam: Regular, Good Perfusion Gastrointestinal/Abdomen GI Exam: Soft, Non-Tender, Bowel Sounds Present, Non-Distended Musculoskeletal MS Exam: Normal Tone MS Remarks Right upper extremity in a sling Integumentary Skin Exam: Warm, Dry Extremeties Extremities Exam: No Edema, Pedal Pulses Palpable Neurologic Neuro Exam: Alert, Awake, Oriented, Speech Clear Psychiatric Psych Exam: Appropriate Responses VTE Prophylaxis VTE Remarks madelainerelto Assessment/Plan Problem List: (1) Degenerative joint disease, shoulder, right Assessment/Plan Assessment . Osteoarthritis severe of the right shoulder. She is status post right reverse shoulder arthroplasty, incomplete rotator cuff tear of the right shoulder . Difficult to ambulate . Debilitated . Hypertension. . Hyperlipidemia. Plan Pain control Physical therapy Bowel regimen DVT prophylaxis, ASA 325 mg po BID x 3 weeks was ordered by orthopedics for DVT prophylaxis use protonix 40 mg po daily x 30 days while on high-dose aspirin Stable for discharge from medical standpoint Discussed with patient Discussed with nurse Thank you for this consultation Nigel Davis MD Oct 21, 2016 13:18
[2016-10-21 15:48] VITALS: BP 119/61; PULSE 59; RESP 16; TEMP 98; O2SAT 93
--- NOTE | 2016-10-22 08:33 | MD ---
cc: SIVAKUMAR RODRIGUEZ M.D., NORMAN ZAHEDI, MINA M.D. ADMISSION DATE: 10/17/2016 DISCHARGE DATE: 10/21/2016 ADMITTING DIAGNOSIS: 1. Severe osteoarthritis of the right shoulder. 2. Incomplete rotator cuff tear right shoulder. 3. Pain right shoulder DISCHARGE DIAGNOSIS: 1. Severe osteoarthritis of the right shoulder. 2. Incomplete rotator cuff tear right shoulder. 3. Pain right shoulder. BRIEF HISTORY: A 76-year-old white female with a lengthy history of pain involving her right shoulder extending back at least 3-1/2 years. She had noted the gradual onset of her discomfort unrelated to injury or unusual activity and initially began taking Aleve for pain management. She presented to the undersigned physician in April of 2013, and at that time x-ray studies revealed hypertrophic reaction about the inferior aspect of the humeral head with preservation of the subacromial space. The patient was diagnosed as having subacromial bursitis with early degenerative joint disease for which she was advised conservative management which included receiving a steroid injection. She was followed on an outpatient basis thereafter and over the following years continued to receive conservative management which included repeat cortisone injections. Unfortunately with the passage of time the injections did not continue to afford the patient the favorable response which she had noted in the past and she began taking Tramadol for pain management. A subsequent MRI scan demonstrated severe glenohumeral joint arthrosis and severe cuff tendinosis without a distinct tear being appreciated. The patient elected to continue with conservative management but became aware of obvious limitations with regards to her daily routine. 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 She returned to the office in July of this past year indicating that she was continuing to have pain about the shoulder area and again requested a repeat injection in the hope that she might be able to experience some overall improvement. Unfortunately, only temporary relief was experienced and she was advised that repeated injections would not be in her best interest as management of ongoing pain. A more recent MRI scan completed within the past year was significant for worsening of the glenohumeral joint osteoarthritis with moderate synovitis and rotator cuff tendinosis. The patient continued utilize Tramadol for pain management. She was becoming increasingly more symptomatic with pain and subsequently underwent a CT scan with contrast, the results of which identified severe glenohumeral joint arthrosis with contrast extending into the subacromial and subdeltoid bursa with a gap about the rotator cuff interval. Findings and treatment options were reviewed with the patient. The pros and cons of continuing with additional conservative management versus operative intervention that would involve a reverse shoulder arthroplasty were outlined in detail. Emphasis was made regarding the fact that the decision to proceed with surgery would be left entirely to the patient's discretion. She readily admitted that she felt she had progressed to that point in time where she was ready to proceed accordingly and in compliance with her wishes, she was scheduled for admission at this time in order that reverse shoulder arthroplasty be completed. Her physical examination at the time of admission revealed mild tenderness generalized about the right shoulder area without palpable deformity, limited mobility of the shoulder joint in all ranges assessed with attempted active posturing of the hand above the head level, significant limitation of internal rotation as well as abduction maneuvering as the patient attempted to reach across her body and touch her opposite shoulder. Pain was associated with the extremes of motion. There was no associated crepitation or instability. Drop arm test positive weakness of internal and external rotation. Protective Services Officer strength intact. Sensory intact. HOSPITAL COURSE: Prior to admission to the hospital, the patient had undergone medical evaluation and clearance for surgery as completed by her primary care physician, Dr. Julien, and cardiology clearance per Dr. Rodriguez. The patient was taken to the operating room on 17 October 2016 and on that date underwent a right reverse shoulder arthroplasty completed in an uncomplicated manner. The patient was noted to have tolerated her operative procedure well. Her postoperative course was stable thereafter. Hemoglobin/hematocrit assessment postoperatively was 11.1 and 32.2, respectively. The patient was progressively mobilized under the guidance of physical therapy with mobilization about the shoulder joint, instructions being given to not exceed 45 degrees of external rotation for the initial four weeks following surgery but thereafter being permitted to progress as tolerated. office services representative was consulted to assist with discharge planning. The patient declined recommendation for temporary rehab placement indicating that she was more in favor of going home and continuing treatment with home health care and outpatient physical therapy. In compliance with her wishes, social work msw accommodated plans in this regard and pending medical clearance she was scheduled for discharge on the third postoperative day at which time she was noted to be in a stable condition. She was scheduled be seen in office followup in approximately four weeks. Prognosis favorable. DISCHARGE MEDICATIONS: 1. Ultram 50 milligrams #60. 2. Aspirin 325 milligrams one tab twice daily for three weeks #40. MD GREGORIO Small/CARRIE /6:51 AM /8:33 AM
== END 2016-10-21 17:57 | disposition home health service (06) | DRG 483 ==
LOC: HSDI 10-17 05:23 → N06B 10-17 12:18
PROVIDERS: ADMIT Orthopaedic Surgery; ATTEND Orthopaedic Surgery
PROC: 0RRJ00Z Replacement of Right Shoulder Joint with Reverse Ball and Socket Synthetic Substitute, Open Approach (ICD-10-PCS; principal; 2016-10-17 07:17)
DX: M19.011 Primary osteoarthritis, right shoulder (principal); I10 Essential (primary) hypertension; R09.02 Hypoxemia; M75.111 Incomplete rotator cuff tear or rupture of right shoulder, not specified as traumatic; M65.811 Other synovitis and tenosynovitis, right shoulder; E78.5 Hyperlipidemia, unspecified; Z88.5 Allergy status to narcotic agent; Z87.891 Personal history of nicotine dependence; Z94.7 Corneal transplant status
CPT/HCPCS: 73020; 80048; 85025; 88304; 88305; 88311; 94150; C1776; J0690; J1100; J1170; J2250; J2270; J2310; J2370; J2405; J3010

== ENCOUNTER → 2016-10-04 | Outpatient (CLI) | payer MEDICARE, BC ==
[~2016-10-04] MED LIST: ALEV220T14 PO; AMLO5TAB2 PO; AMLO5TAB96 PO; ASPI1TAB73 PO; ASPI325T PO; ASPI81TA11 PO; BIOFTAB PO; CALTTAB PO; CITA20TA4 PO; COCO1000 PO; COLA100C3 PO; FISH1000 PO; KONS520C PO; LEVO.025 PO; LEVO25TA4 PO; NAPR220T95 PO; OCUVTAB4 PO; OMEG100037 PO; OMEGCAP19 PO; PRESCAP5 PO; PREV10CA PO; PROT40TA PO; ROSU1TAB6 PO; ROSU40 PO; STRETAB PO; TRAM50TA PO; ULTR50TA5 PO
[2016-10-04 11:06] LABS: PROTHROMBIN TIME - PATIENT 10.6 SEC (9.8-11.6)
[2016-10-04 11:07] LABS: AUTOMATED NEUTROPHIL # 2.8 TH/MM3 (1.8-7.7); BASOPHIL % 0.7 % (0.0-2.0); EOSINOPHIL # 0.1 TH/MM3 (0-0.4); EOSINOPHIL % 2.6 % (0.0-4.0); HEMATOCRIT 38.4 % (35.0-46.0); HEMO FLAGS DIFF FINAL; LYMPH % 24.7 % (9.0-44.0); LYMPHOCYTE # 1.1 TH/MM3 (1.0-4.8); MEAN CELL VOLUME 91.8 FL (80.0-100.0); MEAN CORPUSCULAR HEMOGLOBIN 32.1 PG (27.0-34.0); MONO % 7.7 % (0.0-8.0); NEUT % 64.3 % (16.0-70.0); PLATELET COUNT 210 TH/MM3 (150-450); RED BLOOD COUNT 4.18 MIL/MM3 (4.00-5.30); RED CELL DISTRIBUTION WIDTH 13.7 % (11.6-17.2); WHITE BLOOD COUNT 4.3 TH/MM3 (4.0-11.0)
--- NOTE | 2016-10-04 11:26 | RADRPT ---
EXAM DATE/TIME: 10/04/2016 11:01 [facility] COMPARISON: No previous studies available for comparison. INDICATIONS : Evaluate for pneumonia, pneumothorax, or communicable disease. Pre op for shoulder surgery. MEDICAL HISTORY : None. SURGICAL HISTORY : None. ENCOUNTER: Initial ACUITY: 1 day PAIN SCORE: 0/10 LOCATION: Bilateral chest FINDINGS: PA and lateral views of the chest. The lungs are clear. Cardiomediastinal silhouette within normal li mits. No evidence of pleural effusion or pneumothorax. CONCLUSION: No acute cardiopulmonary disease identified. Cristian Alvarado MD on October 04, 2016 at 11:24 Board Certified Radiologist. This report was verified electronically.
[2016-10-04 11:30] LABS: BICARBONATE 31.3 MEQ/L (21.0-32.0); POTASSIUM 3.7 MEQ/L (3.5-5.1)
[2016-10-04 11:52] LABS: BLOOD, URINE NEG (NEG); CALCIUM OXALATE CRYSTALS,URINE RARE /hpf; GLUCOSE,URINE NEG (NEG); GRANULAR CAST, URINE 1 /lpf; HYALINE CAST, URINE 4 /lpf (RARE); KETONE, URINE NEG (NEG); MUCUS URINE FEW /lpf (OCC); NITRITE,URINE NEG (NEG); SQUAMOUS EPITHELIAL CELL URINE 1 /hpf (0-5); URINE COLOR DARK-YELLOW (YELLW/STRAW)
[2016-10-04 11:55] LABS: COMMENT (UR) CULT NOT INDICATED; CULTURE IF INDICATED CULT NOT INDICATED
--- NOTE | 2016-10-04 13:18 | EKG ---
Date Performed: 10/04/2016 Time Performed: 10:09:19 PTAGE: 76 years EKG: Sinus rhythm LOW QRS VOLTAGE IN PRECORDIAL LEADS POSSIBLE ANTERIOR MYOCARDIAL INFARCTION, PROBABLY OLD BORDERLINE ECG NO PREVIOUS TRACING DOCTOR: Lalo Andres Interpretating Date/Time 10/04/2016 13:16:08
== END ==
LOC: CPRE 09:47
PROVIDERS: ATTEND Orthopaedic Surgery
DX: Z01.810 Encounter for preprocedural cardiovascular examination (principal); Z01.811 Encounter for preprocedural respiratory examination; Z01.812 Encounter for preprocedural laboratory examination; M19.011 Primary osteoarthritis, right shoulder; R94.31 Abnormal electrocardiogram [ECG] [EKG]
CPT/HCPCS: 36415; 71020; 80048; 81001; 85025; 85610; 93005